=== PATIENT | female | born 1960 | race Caucasian/White ===

== ENCOUNTER → 2023-06-28 07:41 | Outpatient (REF) | payer OTHER, MEDICARE, SELFPAY | LOC: EMG 07:41 | PROVIDERS: ATTENDING PHYSICIAN Student in an Organized Health Care Education/Training Program; FAMILY PHYSICIAN Family Medicine | DX: R20.0 Anesthesia of skin (principal) | CPT/HCPCS: 95886; 95913 ==

== ENCOUNTER → 2023-07-09 07:23 | Outpatient (REF) | payer MEDICARE, OTHER, SELFPAY | LOC: MRI 07:23 | PROVIDERS: ATTENDING PHYSICIAN Student in an Organized Health Care Education/Training Program; FAMILY PHYSICIAN Family Medicine | DX: M79.672 Pain in left foot (principal) | CPT/HCPCS: 73718; 73721 ==

== ENCOUNTER 2024-12-25 23:16 | Emergency (ER) | payer MEDICARE, OTHER, SELFPAY ==
[2024-12-25 23:25] VITALS: BP 115/76
[2024-12-25 23:26] VITALS: BMI 21.8
[2024-12-25 23:57] LABS: Urine Character Bloody (Clear)
[2024-12-26 00:03] LABS: Hematocrit 37.3 % (37.0-47.0); Hemoglobin 12.9 g/dL (12.0-16.0); Mean Corp Hgb Conc. 34.6 g/dL (33.0-37.0); Mean Corpuscular Volume 91.9 fL (81.0-99.0); Nucleated Red Blood Cells % 0 %; Platelet Count 183 10^3/uL (130-400); Red Cell Dist. Width 12.0 % (11.5-14.5)
[2024-12-26 00:17] LABS: Urine Squamous Cell 0-2 /LPF (Few)
[2024-12-26 00:18] LABS: Urine Red Blood Cell >100 /HPF (0-2)
[2024-12-26 00:21] LABS: Albumin 4.4 g/dl (3.5-5.0); Blood Urea Nitrogen 15 mg/dl (7-17); Carbon Dioxide 29 mmol/L (22-30); Chloride 99 mmol/L (98-107); Estimated Creatinine Clearance 63 ml/min; Total Protein 6.9 g/dl (6.3-8.2); eGFR > 60.00
[2024-12-26 00:31] LABS: ALT (SGPT) 32 U/L (0-35); AST (SGOT) 37 U/L (14-36); Alkaline Phosphatase 54 U/L (38-126); Calcium 9.5 mg/dl (8.4-10.2); Glucose 98 mg/dl (70-99); Potassium 4.7 mmol/L (3.5-5.1); Sodium 137 mmol/L (135-145)
--- NOTE | 2024-12-26 02:43 | ED.GENMED ---
History of Present Illness
General
Chief Complaint: Urinary Symptoms
Source: patient and spouse
Exam Limitations: none
Time Seen by Provider: 12/26/24 00:33
Nursing documentation reviewed up to this point in time: agreed with
History of Present Illness
History of Present Illness:
64-year-old female presenting to the emergency department today with abrupt onset of urinary urgency burning and gross hematuria 1 hour prior to arrival to the emergency department. Denies any fevers nausea vomiting. Pain minimal when not
urinating. No preceding back pain or abdominal pain.
Past History
Past History
ED Past Medical History: Hypercholesterolemia
ED Past Surgical History: Orthopedic
Social History
Tobacco: Non-smoker
Personal:
Living: with family
Employment: Employed
Review of Systems
Review of Systems
Allergies reviewed?: Yes
All Other Systems: ROS reviewed and negative except as documented in HPI and ROS
Phy Exam
Physical Exam
Physical Exam:
GENERAL: Alert , in no apparent distress
EYE: pupils equal and reactive
NECK: Supple, no significant adenopathy.
ENT: o/p clr, mmm.
CARDIAC: Regular rate and rhythm .
LUNGS: Clear breath sounds bilaterally, no acute respiratory distress, no wheezes/rales/rhonchi
ABDOMEN: Soft, without focal tenderness, no r/g, no cvat
NEUROLOGICAL: Alert and oriented, no focal neuro deficits
SKIN: Warm and dry, skin intact.
MUSCULOSKELETAL: No edema, well perfused.
PSYCH: Normal and appropriate interaction.
Course
Orders/Labs/Results
Orders:
Orders
12/25/24 23:41
Complete Blood Count/With Diff Urgent
12/25/24 23:42
Comprehensive Metabolic Panel Urgent
12/25/24 23:47
Urinalysis Reflex To Culture Urgent
Date Specimen was Collected: 12/25/24
Time Specimen was Collected: 23:36
Urine Microscopic Reflex Cult Urgent
Urine Culture Urgent
MELISSA Source: U
Specimen Description:
Date Specimen was Collected: 12/25/24
Time Specimen was Collected: 23:36
12/26/24 01:02
CT Abd/pel Without Iv Or Oral Urgent
Comment:
Reason For Exam: hematuria/pain
12/26/24 02:30
Bladder Scan- Treatment ONCE
12/26/24 02:54
Cefdinir [Omnicef] 300 mg PO NOW STA
Abnormal Lab Results
12/25/24 12/25/24 12/25/24
23:41 23:42 23:47
RBC 4.06 L 10^6/uL
(4.20-5.40)
MCH 31.8 H pg
(27.0-31.0)
Absolute Neuts (auto) 6.8 H 10^3/uL
(1.4-6.5)
AST 37 H U/L
(14-36)
Ur Occult Blood Reflex 4+ A
(Negative)
Leukocyte Esterase Rfl 3+ A
(Negative)
Urine RBC >100 A /HPF
(0-2)
Urine Albumin (Reflex) 4+ A
(Neg - Trace)
12/25/24 23:41
12/25/24 23:42
Vital Signs
Initial and Last Documented VS:
Initial Vital Signs
Temp Pulse BP Pulse Ox
98.3 F 70 115/76 99
12/25/24 23:25 12/25/24 23:25 12/25/24 23:25 12/25/24 23:25
Last Documented Vital Signs
Temp Pulse Resp BP Pulse Ox
97.6 F 64 16 119/77 97
12/26/24 03:08 12/26/24 03:08 12/26/24 03:08 12/26/24 03:08 12/26/24 03:08
MDM/Problems Addressed
MDM/Problems Addressed:
64-year-old female presenting to the emergency department today with concerns of hematuria urgency frequency burning that occurred just 1 hour prior to arrival. Otherwise felt well prior. Vital signs normal here labs unremarkable urinalysis with
greater than 100 red blood cells leukocyte esterase 6-[address] scan was obtained without acute abnormalities. Case was discussed with urology recommending starting antibiotic and otherwise close outpatient follow-up. Patient
voiding well here without difficulty.
*Pulse Oximetry
SaO2: 99
Oxygen Mode of Delivery: Room air
Patient hypoxic: no (97)
*Critical Care Note
Total Time (30-74mins, 75-104mins- exclusive of procedures): Not Applicable
ED Attending Note
-
Portions of this chart may have been created with voice recognition software.� Occasional wrong word or��sound alike� substitutions may have occurred due to the inherent limitations of voice recognition software.
Discharge Plan
Departure
Patient Disposition: Home (Routine Discharge)
Date of Disposition: 12/26/24
Time of Disposition: 02:51
Patient with high blood pressure during this ER visit?: No
Condition: Good
Covid-19: Not Applicable
Discharge Problem:
Hematuria
Instructions: Urinary Tract Infection, Adult (DC), Blood in the Urine (Hematuria), Adult (DC)
Prescriptions:
New
cefpodoxime 100 mg tablet
100 mg PO BID 7 Days Qty: 14 0RF
No Action
metaxalone [Skelaxin] 800 MG tablet
800 mg PO TIDPRN PRN (Reason: pain) Qty: 12 0RF
Referrals:
Mary Brown DO [Family Provider, Family Practice]
Ascencion Silva Jr., MD [Active, Urology] - Follow up in 5-7 days
Activity Restrictions/Additional Instructions:
You came to the emergency department today with concerns of hematuria. Here you had a reassuring assessment. You were started on an antibiotic. Please take this twice daily of the next 7 days and follow-up closely with urology. Return for any
worsening, new or concerning symptoms.
Interventions
Interventions:
*Risk Screen - Suicide Last Done: 12/25/24 23:30
*General Assessment Last Done: 12/25/24 23:30
*Neglect/Abuse Screening Last Done: 12/25/24 23:30
*ED- Fall Risk Assessment Last Done: 12/25/24 23:30
*ED COVID-19 Vaccine History Last Done: 12/25/24 23:30
*ED Influenza Vaccine History Last Done: 12/25/24 23:30
*Nursing Disposition Last Done: 12/26/24 03:08
ED-Female Genitourinary Assessment Last Done: 12/26/24 01:23
Discharge Date and Time
Discharge Date/Time: 12/26/24 03:08
Print Language: HUNGARIAN
[2024-12-26] MEDS: OMNICEF 300 MG PO (03:03)
[2024-12-26 03:08] VITALS: BP 119/77
== END 2024-12-26 03:08 | disposition home or self-care (01) ==
LOC: EMR 23:16
PROVIDERS: EMERGENCY PHYSICIAN Student in an Organized Health Care Education/Training Program; FAMILY PHYSICIAN Family Medicine
DX: R31.0 Gross hematuria (principal); E78.00 Pure hypercholesterolemia, unspecified
CPT/HCPCS: 99284; 74176; 80053; 81003; 81015; 85025; 87077; 87086; 87186

== ENCOUNTER → 2025-01-14 16:25 | Outpatient (REF) | payer MEDICARE, OTHER, SELFPAY | LOC: CLAB 16:25 | PROVIDERS: ATTENDING PHYSICIAN Specialist | DX: N39.0 Urinary tract infection, site not specified (principal) | CPT/HCPCS: 87086; 88112 ==